=== PATIENT | male | born 1950 | race Caucasian/White ===

== ENCOUNTER 2018-03-27 02:32 | Inpatient (IN) | payer MEDICARE, OTHER ==
[~2018-03-27] VITALS: Ht 170.2 cm; Wt 71.7 kg
[~2018-03-27 02:32] MED LIST: ASPI-807 PO; ATEN25TA PO; SIMV5TAB6 PO
--- NOTE | 2018-03-27 02:35 | NUR ---
PT [id number] FROM HOME COMPLAINING OF SOB WITH AUDIBLE WHEEZING. PT ALSO COMPLAINING OF NONRADIATING CHEST PAIN FOR 2 DAYS. PT RECEIVED 5 SPRAYS NITRO AND 1 ALBUTEROL TREATMENT BY RA. PT [id number]. RESPIRATIONS EVEN, SKIN WARM AND INTACT. PT PLACED ON MONITOR, WAITING MD EVALUATION
--- NOTE | 2018-03-27 02:37 | NUR ---
MD AT BEDSIDE FOR EVALUATION
--- NOTE | 2018-03-27 02:45 | NUR ---
PER RA PLACED IV ON LEFT AC 18G. LABS DRAWN FROM SITE. MEDICAL TECHNOLOGIST MICROBIOLOGY AT BEDSIDE FOR COLLECTION. IV INTACT AND PATENT
--- NOTE | 2018-03-27 02:50 | NUR ---
RT AT BEDSIDE FOR BREATHING TREATMENT
[2018-03-27] MEDS ORDERED: predniSONE 20 MG TABLET ONE (02:52)
[2018-03-27] MEDS ORDERED: ALBUTEROL FS 2.5 MG/3 ML VIAL.NEB ONE (02:53)
[2018-03-27] MEDS ORDERED: IPRATROPIUM NEB FS 0.5 MG/2.5 ML AMPUL.NEB ONE (02:53)
[2018-03-27] MEDS ORDERED: ALBUTEROL FS 2.5 MG/3 ML VIAL.NEB NEB ONE (03:00)
[2018-03-27] MEDS ORDERED: predniSONE 20 MG TABLET PO ONE (03:00)
[2018-03-27] MEDS ORDERED: IPRATROPIUM NEB FS 0.5 MG/2.5 ML AMPUL.NEB NEB ONE (03:00)
--- NOTE | 2018-03-27 03:00 | NUR ---
RADIOLOGY AT BEDSIDE FOR CXR
[2018-03-27 03:09] LABS: BASOPHILS % (AUTO) 0.4 % (0.0-2.0); EOSINOPHILS % (AUTO) 0.4 % (0.0-6.0); HEMATOCRIT 39 % (39-51); HEMOGLOBIN 11.9 g/dL (13.5-17.5); LYMPHOCYTES # (AUTO) 2.7 /CMM (0.8-4.8); LYMPHOCYTES % (AUTO) 26.9 % (20.0-44.0); MEAN CORPUSCULAR HGB CONC 31 g/dl (31.0-36.0); MEAN CORPUSCULAR VOLUME 85 fL (80-96); MONOCYTES # (AUTO) 0.7 /CMM (0.1-1.30); NEUTROPHILS # (AUTO) 6.6 /CMM (1.8-8.9); NEUTROPHILS % (AUTO) 65.3 % (43.0-81.0); PLATELET COUNT (AUTO) 319 /CMM (150-450); RDW COEFFICIENT OF VARIATION 16.8 (11.5-15.0); RED BLOOD CELL COUNT(AUTO) 4.52 MIL/uL (4.5-6.0); WHITE BLOOD COUNT (AUTO) 10.1 K/uL (4.3-11.0)
[2018-03-27 03:24] LABS: CALCIUM, SERUM 8.7 mg/dL (8.5-10.1); CREATININE 1.2 mg/dL (0.6-1.3); POTASSIUM 4.1 mmol/L (3.5-5.1)
[2018-03-27 03:29] LABS: TROPONIN I 0.034 ng/mL (0.00-0.056)
[2018-03-27 03:34] LABS: ALBUMIN 3.5 g/dL (3.4-5.0); BILIRUBIN,DIRECT 0.2 mg/dL (0.0-0.2); BILIRUBIN,TOTAL 0.7 mg/dL (0.2-1.0); TOTAL PROTEIN, SERUM 6.8 g/dL (6.4-8.2)
[2018-03-27] MEDS ORDERED: IOHEXOL-350 100 ML VIAL IV ONE (03:43)
[2018-03-27] MEDS ORDERED: IV NS 0.9% 250 ML IV ONE (03:43)
[2018-03-27] MEDS ORDERED: CT SWABBABLE VALVE TRANS SET 1 EA INFUS.SET MC ONE (03:43)
--- NOTE | 2018-03-27 03:51 | NUR ---
PT BROUGHT BY RADIOLOGY FOR CT
[2018-03-27] MEDS ORDERED: ASPIRIN 81 MG TAB.CHEW ONE ×2 (04:00→04:33)
[2018-03-27] MEDS ORDERED: ASPIRIN 81 MG TAB.CHEW PO ONE ×2 (04:00→04:30)
[2018-03-27] MEDS ORDERED: NITROGLYCERIN PACKET 1 GM PACKET TD ONE (04:30)
[2018-03-27] MEDS ORDERED: FUROSEMIDE 40 MG/4 ML VIAL IV ONE (04:30)
[2018-03-27] MEDS ORDERED: FUROSEMIDE 40 MG/4 ML VIAL ONE (04:32)
[2018-03-27] MEDS ORDERED: NITROGLYCERIN PACKET 1 GM PACKET ONE (04:33)
--- NOTE | 2018-03-27 05:00 | NUR ---
GAVE REPORT TO SUDHA KLEIN FOR VENECIA
--- NOTE | 2018-03-27 05:17 | NUR ---
TRANSFER PT TO 325-2 PER ACLS PROTOCOLS
--- NOTE | 2018-03-27 05:25 | NUR ---
RECEIVED PATIENT FROM ER FOR C/O SOB AND NON-RADIATING CHEST PAIN X 2 DAYS. AO X 3, ABLE TO MAKE NEEDS KNOW. SON AT BEDSIDE FOR TRANSLATION. NO ACUTE DISTRESS NOTED. DENIES ANY PAIN AT THIS TIME. TELE READING SINUS WITH PVC HR 79. IV SITE PATENT, INTACT; FLUSHED. SKIN INTACT. SAFETY REMINDERS GIVEN. ORIENTATION TO ROOM AND UNIT GIVEN. ON LOW BED WITH BILATERAL UPPER SIDE RAILS UP. CALL MI WITHIN EASY REACH. WILL CONTINUE TO MONITOR.
[2018-03-27 05:30] VITALS: BP 141/86
--- NOTE | 2018-03-27 06:14 | NUR ---
PATIENT AWAKE. RESPIRATIONS EVEN. NO SIGNS OF PAIN NOTED. NEEDS ATTENDED. KEPT CLEAN AND DRY. SAFETY PRECAUTIONS AND COMFORT MEASURES IN PLACE. WILL GIVE REPORT TO DAY SHIFT FOR CONTINUITY OF CARE.
[2018-03-27 06:50] VITALS: BP 143/80
[2018-03-27] MEDS ORDERED: MAGNESIUM HYDROXIDE 30 ML UDC PO PRN (07:00)
[2018-03-27] MEDS ORDERED: MORPHINE SULFATE INJ 4 MG/ML DISP.SYRIN IV PRN (07:00)
[2018-03-27] MEDS ORDERED: ACETAMINOPHEN 325 MG TABLET PO PRN (07:00)
[2018-03-27] MEDS ORDERED: IPRATROPIUM NEB FS 0.5 MG/2.5 ML AMPUL.NEB NEB PRN (07:00)
[2018-03-27] MEDS ORDERED: ALBUTEROL FS 2.5 MG/3 ML VIAL.NEB NEB PRN (07:00)
[2018-03-27] MEDS ORDERED: ONDANSETRON HCL/PF 4 MG/2 ML VIAL IVP PRN (07:00)
--- NOTE | 2018-03-27 07:30 | NUR ---
HAND ETCHER HELPER NOTES. PT RECEIVED A&0X3, YI SPEAKING WITH LIMITED KYRGYZ. TELE SR WITH PVC. PT WITH O2 VIA NC AT 3LPM, WITH LIMITED COMMUNICATION DENIES SOB AND PAIN. PT WITH IVC INTACT AT LAC. PT BED IN LOWEST LOCKED POSITION WITH HANDRAILSX2 AND CALL MI WITHIN REACH. PT TO BE BRIEFED ON TODAY'S POC WITH TRANSLATION BUT APPEARS WITHOUT CONCERN OR COMPLAINT AT THIS TIME, WILL CONTINUE POC.
[2018-03-27 08:00] VITALS: BP 116/71
[2018-03-27] MEDS: LEVOFLOXACIN 500 MG /D5W 100ML 500 MG in PREMIX 1 EA IV SCH (08:47)
[2018-03-27] MEDS: DOCUSATE SODIUM 100 MG CAPSULE PO SCH ×2 (09:00→17:17)
[2018-03-27] MEDS: CARVEDILOL 6.25 MG TABLET PO SCH ×2 (09:00→21:46)
[2018-03-27] MEDS: NICOTINE PATCH (21MG) 21 MG PATCH.TD24 TD SCH (09:00)
[2018-03-27] MEDS: ASPIRIN EC 81 MG TABLET.DR PO SCH (09:00)
[2018-03-27] MEDS ORDERED: FUROSEMIDE 40 MG/4 ML VIAL IV SCH (09:00)
[2018-03-27] MEDS: PANTOPRAZOLE 40 MG TABLET.DR PO SCH (09:00)
[2018-03-27] MEDS: ENOXAPARIN SODIUM 40 MG/0.4 ML DISP.SYRIN SQ SCH (09:07)
[2018-03-27] MEDS: ATORVASTATIN 40 MG TABLET PO SCH (09:10)
[2018-03-27] MEDS: FUROSEMIDE 40 MG/4 ML VIAL IV SCH ×3 (09:10→17:17)
[2018-03-27] MEDS: POTASSIUM CHLORIDE 20 MEQ TAB.PRT.SR PO SCH ×3 (09:10→12:36)
[2018-03-27] MEDS: ALBUTEROL HALF STRENGTH 1.25 MG/3 ML VIAL.NEB NEB SCH ×3 (10:00→19:46)
[2018-03-27] MEDS: GUAIFENESIN LA 600 MG TABLET.SA PO SCH ×2 (10:22→21:46)
[2018-03-27] MEDS: IPRATROPIUM NEB FS 0.5 MG/2.5 ML AMPUL.NEB NEB SCH ×3 (10:33→19:46)
[2018-03-27 10:46] LABS: THYROID STIMULATING HORMONE 0.259 uIU/mL (0.358-3.74)
[2018-03-27 12:00] VITALS: BP 101/64
[2018-03-27] MEDS ORDERED: methylPREDNISolone SOD SUCC 40 MG/ML VIAL IV SCH (13:00)
[2018-03-27 16:00] VITALS: BP 103/65
--- NOTE | 2018-03-27 18:50 | NUR ---
VALET SERVICE ATTENDANT NOTES. PT RECEIVED A&0X3, WITH O2 VIA NC AT 3LPM, DENIES PAIN OR DISCOMFORT. PT WITH IVC INTACT AT LAC. PT BED IN LOWEST LOCKED POSITION WITH HANDRAILSX2 AND CALL MI WITHIN REACH. ALL DAY NURSE DUTIES ATTENDED TO. PT BED IN LOWEST LOCKED POSITION WITH HANDRAILSX2 AND CALL MI WITHIN REACH. WILL ENDORSE TO NIGHT NURSE AT BEDSIDE FOR VENECIA.
--- NOTE | 2018-03-27 19:20 | NUR ---
TELE/RN NOTES RECEIVED PT. LYING IN BED. PT. IS AWAKE, ALERT AND ORIENTED X3. BREATHING EVEN AND UNLABORED ON 3LPM O2 VIA NC. NO SOB, RESPIRATORY DISTRESS OR COMPLAINTS OF PAIN NOTED AT THIS TIME. NO COMPLAINTS OF CHEST PAIN NOTED AT THIS TIME. PT. WITH EXTERNAL MACHINIST CLASS B PRESENT AND INTACT. CURRENT RHYTHM = SINUS RHYTHM WITH INVERTED T WAVE HR 90. PT. WITH LEFT AC 18 GAUGE IV SALINE LOCK PRESENT, PATENT AND INTACT. PT. WITH FAMILY MEMBERS PRESENT AT BEDSIDE. PER DAYSHIFT NURSE PT. TO HAVE STRESS TEST TOMORROW MORNING, CONSENT SIGNED AND PLACED IN PT. CHART, PT. TO BE NPO AFTER MIDNIGHT. BED LOCKED AND IN LOWEST POSITION, SIDE RAILS UP X2, CALL LIGHT WITHIN REACH, WILL CONTINUE TO MONITOR.
[2018-03-27 20:00] VITALS: BP 108/69
[2018-03-28] VITALS: BP 104/71
[2018-03-28] MEDS: ALBUTEROL HALF STRENGTH 1.25 MG/3 ML VIAL.NEB NEB SCH ×2 (01:51→07:26)
[2018-03-28] MEDS: IPRATROPIUM NEB FS 0.5 MG/2.5 ML AMPUL.NEB NEB SCH ×4 (01:51→20:14)
[2018-03-28 04:00] VITALS: BP 114/75
--- NOTE | 2018-03-28 06:09 | NUR ---
TELE/RN NOTES PT. IS LYING IN BED RESTING. BREATHING EVEN AND UNLABORED ON 3LPM O2 VIA NC. NO SOB, RESPIRATORY DISTRESS OR COMPLAINTS OF PAIN NOTED AT THIS TIME AND THROUGHOUT SHIFT. NO COMPLAINTS OF CHEST PAIN NOTED AT THIS TIME. PT. WITH EXTERNAL DRAFTSPERSON PRESENT AND INTACT. CURRENT RHYTHM = SINUS RHYTHM WITH HR 81. PT. WITH LEFT AC 18 GAUGE IV SALINE LOCK PRESENT, PATENT AND INTACT. PT. REMAINS NPO SINCE MIDNIGHT PENDING STRESS TEST THIS MORNING. ALL PT. NEEDS MET. BED LOCKED AND IN LOWEST POSITION, SIDE RAILS UP X2, CALL LIGHT WITHIN REACH, WILL ENDORSE TO DAYSHIFT NURSE FOR CONTINUITY OF CARE.
--- NOTE | 2018-03-28 07:30 | NUR ---
PT RECEIVED RESTING COMFORTABLY IN BED. NO S/S OR C/O PAIN OR DISTRESS NOTED. SIDE RAILS UP X2, CALL LIGHT LEFT WITHIN REACH. WILL CONTINUE PLAN OF CARE.
[2018-03-28 07:40] LABS: BASOPHILS # (AUTO) 0.1 /CMM (0.0-0.2); BASOPHILS % (AUTO) 0.9 % (0.0-2.0); EOSINOPHILS % (AUTO) 0.8 % (0.0-6.0); HEMATOCRIT 41 % (39-51); HEMOGLOBIN 13.3 g/dL (13.5-17.5); LYMPHOCYTES # (AUTO) 2.7 /CMM (0.8-4.8); LYMPHOCYTES % (AUTO) 26.9 % (20.0-44.0); MEAN CORPUSCULAR HGB CONC 32 g/dl (31.0-36.0); MEAN CORPUSCULAR VOLUME 84 fL (80-96); MONOCYTES # (AUTO) 0.9 /CMM (0.1-1.30); MONOCYTES % (AUTO) 8.7 % (2.0-12.0); NEUTROPHILS # (AUTO) 6.2 /CMM (1.8-8.9); NEUTROPHILS % (AUTO) 62.7 % (43.0-81.0); PLATELET COUNT (AUTO) 335 /CMM (150-450); RDW COEFFICIENT OF VARIATION 15.4 (11.5-15.0); RED BLOOD CELL COUNT(AUTO) 4.87 MIL/uL (4.5-6.0); WHITE BLOOD COUNT (AUTO) 9.9 K/uL (4.3-11.0)
[2018-03-28 07:41] LABS: TROPONIN I 0.017 ng/mL (0.00-0.056)
[2018-03-28 07:46] LABS: THYROID STIMULATING HORMONE 0.474 uIU/mL (0.358-3.74)
[2018-03-28 07:48] LABS: ALBUMIN 3.5 g/dL (3.4-5.0); BILIRUBIN,TOTAL 0.6 mg/dL (0.2-1.0); CALCIUM, SERUM 8.5 mg/dL (8.5-10.1); CREATININE 1.6 mg/dL (0.6-1.3); MAGNESIUM 2.1 mg/dL (1.8-2.4); PHOSPHORUS 3.7 mg/dL (2.5-4.9); POTASSIUM 3.8 mmol/L (3.5-5.1); TOTAL PROTEIN, SERUM 7.1 g/dL (6.4-8.2)
[2018-03-28 08:00] VITALS: BP 109/73
[2018-03-28] MEDS ORDERED: REGADENOSON 0.4 MG/5 ML DISP.SYRIN IVP ONE (08:00)
[2018-03-28] MEDS ORDERED: PREG100C PO (08:07)
[2018-03-28] MEDS ORDERED: DONE10TA44 PO (08:07)
[2018-03-28] MEDS ORDERED: ESOM40CA PO (08:07)
[2018-03-28] MEDS ORDERED: CLOP75TA15 PO (08:07)
[2018-03-28] MEDS ORDERED: CARB200T8 PO (08:07)
[2018-03-28] MEDS ORDERED: METF-440 PO (08:07)
[2018-03-28] MEDS ORDERED: LUBI24CA5 PO (08:07)
[2018-03-28] MEDS ORDERED: ROSU10TA PO (08:07)
[2018-03-28] MEDS ORDERED: TAMS0.4C34 PO (08:07)
[2018-03-28] MEDS ORDERED: methylPREDNISolone SOD SUCC 40 MG/ML VIAL IV SCH (09:00)
[2018-03-28] MEDS: NICOTINE PATCH (21MG) 21 MG PATCH.TD24 TD SCH (09:49)
[2018-03-28] MEDS: ATORVASTATIN 40 MG TABLET PO SCH (09:52)
[2018-03-28] MEDS: GUAIFENESIN LA 600 MG TABLET.SA PO SCH ×2 (09:52→20:32)
[2018-03-28] MEDS: PANTOPRAZOLE 40 MG TABLET.DR PO SCH (09:52)
[2018-03-28] MEDS: ASPIRIN EC 81 MG TABLET.DR PO SCH (09:52)
[2018-03-28] MEDS: DOCUSATE SODIUM 100 MG CAPSULE PO SCH ×2 (09:52→17:00)
[2018-03-28] MEDS: ENOXAPARIN SODIUM 40 MG/0.4 ML DISP.SYRIN SQ SCH (10:02)
[2018-03-28] MEDS: CARVEDILOL 6.25 MG TABLET PO SCH ×2 (10:05→20:32)
[2018-03-28] MEDS: FUROSEMIDE 40 MG TABLET PO SCH (10:07)
[2018-03-28] MEDS: LEVOFLOXACIN 500 MG /D5W 100ML 500 MG in PREMIX 1 EA IV SCH (10:07)
[2018-03-28] MEDS: POTASSIUM CHLORIDE 20 MEQ TAB.PRT.SR PO SCH (10:07)
[2018-03-28 16:00] VITALS: BP 124/79
--- NOTE | 2018-03-28 18:50 | NUR ---
CHANGE OF SHIFT REPORT PT RESTING COMFORTABLY IN BED. NO S/S OR C/O PAIN OR DISTRESS NOTED. SIDE RAILS UP X2, CALL LIGHT LEFT WITHIN REACH. PT KEPT CLEAN, DRY, AND COMFORTABLE. NO SIGNIFICANT CHANGES FROM PREVIOUS SHIFT. WILL GIVE REPORT TO CHEMA KLEIN.
--- NOTE | 2018-03-28 19:30 | NUR ---
RN MS OPENING NOTES RECEIVED PATIENT IN BED AWAKE. ALERT AND ORIENTED X4. VERBALLY RESPONSIVE. NEPALI SPEAKER. BREATHING EVEN AND UNLABORED. NO SOB NOTED. ON ROOM AIR. NO COMPLAINTS OF PAIN OR DISCOMFORT. IV ACCESS INTACT AND PATENT. SKIN DRY AND WARM TO TOUCH. AFEBRILE. ALL OTHER NEEDS ATTENDED TO. FAMILY AT BEDSIDE. SAFETY MEASURES IN PLACE. CALL LIGHT WITHIN REACH. WILL CONTINUE TO MONITOR.
[2018-03-28 19:33] LABS: CREATININE, URINE 35.4 MG/DL (30.0-125.0)
[2018-03-28 20:00] VITALS: BP 112/71
[2018-03-28 20:04] LABS: APPEARANCE,URINE SL CLOUDY (CLEAR); BILIRUBIN,URINE NEGATIVE (NEGATIVE); BLOOD, URINE NEGATIVE Ery/uL (NEGATIVE); COLOR,URINE YELLOW (YELLOW); KETONES,URINE NEGATIVE (NEGATIVE); LEUKOCYTE ESTERASE ,URINE NEGATIVE (NEGATIVE); NITRITE, URINE NEGATIVE (NEGATIVE); PROTEIN,URINE NEGATIVE (NEGATIVE); UGLUCOSE NEGATIVE (NEGATIVE); UROBILINOGEN,URINE 0.2 EU/dL (0.2)
[2018-03-28 20:44] LABS: EOSINOPHIL,URINE None Seen
[2018-03-29] MEDS: IPRATROPIUM NEB FS 0.5 MG/2.5 ML AMPUL.NEB NEB SCH ×2 (00:57→07:24)
--- NOTE | 2018-03-29 06:42 | NUR ---
RN MS CLOSING NOTES PATIENT IN BED ASLEEP. EASILY AROUSABLE. NO ACUTE CHANGES THROUGHOUT SHIFT. ALERT AND ORIENTED X4. VERBALLY RESPONSIVE. BRITISH SPEAKER. BREATHING EVEN AND UNLABORED. NO SOB NOTED. ON ROOM AIR. NO COMPLAINTS OF PAIN OR DISCOMFORT. IV ACCESS INTACT AND PATENT. SKIN DRY AND WARM TO TOUCH. AFEBRILE. ALL OTHER NEEDS ATTENDED TO. SAFETY MEASURES IN PLACE. CALL LIGHT WITHIN REACH. WILL ENDORSE TO ONCOMING NURSE FOR CONTINUITY OF CARE.
[2018-03-29 07:42] LABS: BASOPHILS % (AUTO) 0.2 % (0.0-2.0); EOSINOPHILS % (AUTO) 0.3 % (0.0-6.0); HEMATOCRIT 39 % (39-51); HEMOGLOBIN 12.8 g/dL (13.5-17.5); LYMPHOCYTES # (AUTO) 2.6 /CMM (0.8-4.8); LYMPHOCYTES % (AUTO) 21.9 % (20.0-44.0); MEAN CORPUSCULAR HGB CONC 32 g/dl (31.0-36.0); MEAN CORPUSCULAR VOLUME 84 fL (80-96); NEUTROPHILS % (AUTO) 68.6 % (43.0-81.0); PLATELET COUNT (AUTO) 357 /CMM (150-450); RDW COEFFICIENT OF VARIATION 17.2 (11.5-15.0); RED BLOOD CELL COUNT(AUTO) 4.67 MIL/uL (4.5-6.0); WHITE BLOOD COUNT (AUTO) 11.7 K/uL (4.3-11.0)
[2018-03-29 07:56] LABS: ALBUMIN 3.4 g/dL (3.4-5.0); BILIRUBIN,TOTAL 0.4 mg/dL (0.2-1.0); CALCIUM, SERUM 8.8 mg/dL (8.5-10.1); CREATININE 1.4 mg/dL (0.6-1.3); MAGNESIUM 2.2 mg/dL (1.8-2.4); POTASSIUM 4.5 mmol/L (3.5-5.1); TOTAL PROTEIN, SERUM 6.9 g/dL (6.4-8.2)
--- NOTE | 2018-03-29 08:00 | NUR ---
MS RN RECEIVED ON BED, AWAKE,LEFT,ORIENTED X4,NOT IN ANY FORM OF DISTRESS, RESPIRATIONS EVEN AND [id number], NO SOB NOTED. LUNGS ARE CLEAR,ABDOMEN SOFT,POSITIVE BOWEL SOUNDS, DENIES PAIN AT THIS TIME,LL NEEDS ATTENDED.
[2018-03-29 08:24] VITALS: BP 119/72
--- NOTE | 2018-03-29 09:00 | NUR ---
MS KLEIN BREAKFAST SERVED,DUE MEDS GIVEN.TOLERATED WELL.
[2018-03-29] MEDS: GUAIFENESIN LA 600 MG TABLET.SA PO SCH (09:39)
[2018-03-29] MEDS: ASPIRIN EC 81 MG TABLET.DR PO SCH (09:39)
[2018-03-29] MEDS: FUROSEMIDE 40 MG TABLET PO SCH (09:39)
[2018-03-29] MEDS: DOCUSATE SODIUM 100 MG CAPSULE PO SCH (09:39)
[2018-03-29] MEDS: POTASSIUM CHLORIDE 20 MEQ TAB.PRT.SR PO SCH (09:39)
[2018-03-29] MEDS: LEVOFLOXACIN 500 MG /D5W 100ML 500 MG in PREMIX 1 EA IV SCH (09:40)
[2018-03-29] MEDS: ATORVASTATIN 40 MG TABLET PO SCH (09:40)
[2018-03-29] MEDS: NICOTINE PATCH (21MG) 21 MG PATCH.TD24 TD SCH (09:40)
[2018-03-29 09:41] VITALS: BP 119/72
[2018-03-29] MEDS: CARVEDILOL 6.25 MG TABLET PO SCH (09:41)
[2018-03-29] MEDS: ENOXAPARIN SODIUM 40 MG/0.4 ML DISP.SYRIN SQ SCH (09:41)
[2018-03-29] MEDS: PANTOPRAZOLE 40 MG TABLET.DR PO SCH (09:48)
--- NOTE | 2018-03-29 11:20 | NUR ---
MS RN WAS SEEN BY DR. HOSEA Talamantes/ STEVO TO GO HOME TODAY.
[2018-03-29] MEDS ORDERED: FURO40TA5 PO (11:29)
[2018-03-29] MEDS ORDERED: FLUT1DIS3 INH (11:29)
[2018-03-29] MEDS ORDERED: CARV6.252 PO (11:29)
[2018-03-29] MEDS ORDERED: NICO-677 TD (11:38)
[2018-03-29] MEDS ORDERED: GUAI600T53 PO (11:38)
[2018-03-29] MEDS ORDERED: PRED20TA PO (11:38)
--- NOTE | 2018-03-29 12:10 | NUR ---
MS RN PATIENT WENT HOME, DISCHARGE INSTRUCTIONS GIVEN,ALL NEEDS ATTENDED.
--- NOTE | 2018-03-29 12:30 | NUR ---
MS RN ON BED, NO DISTRESS NOTED, WENT HOME ACCOMPANIED BY SON
[2018-03-30 13:10] LABS: PTH, INTACT 74 pg/mL (15-65)
[2018-03-30 14:20] LABS: *SPE A/G RATIO 1.1 (0.7-1.7); *SPE ALBUMIN 3.3 g/dL (2.9-4.4); *SPE ALPHA-1-GLOBULIN 0.3 g/dL (0.0-0.4); *SPE ALPHA-2-GLOBULIN 0.8 g/dL (0.4-1.0); *SPE M-SPIKE Not Observed g/dL (Not Observed)
== END 2018-03-29 12:15 | disposition home or self-care (01) | DRG 291 ==
LOC: ER 02:33 → EDBD 02:33 → TELE 05:06 → MED 03-28 14:52
PROVIDERS: ADMIT Internal Medicine; ATTEND Internal Medicine
DX: I13.0 Hypertensive heart and chronic kidney disease with heart failure and stage 1 through stage 4 chronic kidney disease, or unspecified chronic kidney disease (principal); J96.01 Acute respiratory failure with hypoxia; N17.0 Acute kidney failure with tubular necrosis; I50.43 Acute on chronic combined systolic (congestive) and diastolic (congestive) heart failure; J44.1 Chronic obstructive pulmonary disease with (acute) exacerbation; I25.2 Old myocardial infarction; E03.9 Hypothyroidism, unspecified; I25.10 Atherosclerotic heart disease of native coronary artery without angina pectoris; Z95.5 Presence of coronary angioplasty implant and graft; E11.51 Type 2 diabetes mellitus with diabetic peripheral angiopathy without gangrene; J40 Bronchitis, not specified as acute or chronic; F17.210 Nicotine dependence, cigarettes, uncomplicated; D63.8 Anemia in other chronic diseases classified elsewhere; N40.0 Benign prostatic hyperplasia without lower urinary tract symptoms; G62.9 Polyneuropathy, unspecified; F03.90 Unspecified dementia, unspecified severity, without behavioral disturbance, psychotic disturbance, mood disturbance, and anxiety; F41.9 Anxiety disorder, unspecified; F32.9 Major depressive disorder, single episode, unspecified; E11.22 Type 2 diabetes mellitus with diabetic chronic kidney disease; N18.9 Chronic kidney disease, unspecified; I42.9 Cardiomyopathy, unspecified
CPT/HCPCS: 36415; 71045-TC; 80048-TC; 80053-TC; 80061-TC; 80076-TC; 81000-TC; 82550-TC; 82570-TC; 83735-TC; 83880; 83970; 84100-TC; 84155; 84155-TC; 84165; 84300-TC; 84439-TC; 84443-TC; 84484-TC; 85025-TC; 85378-TC; 87081-TC; 87400; 93307-TC; 94799-TC; A4216; A4606; A9502; J1650; J1940; J1956; J2785; J2920; J7030; J7050; Q9967; Z7610